=== PATIENT | male | born 1970 | race Caucasian/White ===

== ENCOUNTER → 2017-05-17 | Day surgery (SDC) | payer BC ==
[2017-05-12 12:27] LABS: BASOPHILS % 0.7 % (0.0-1.0); EOSINOPHILS % 0.2 % (0.0-6.0); HEMATOCRIT 46.8 % (38.2-49.6); HEMOGLOBIN 16.3 g/dL (14.0-18.0); LYMPHOCYTES % 21.9 % (18.0-39.1); MEAN CORPUSCULAR HEMOGLOBIN 34.8 pg (28-32); MEAN CORPUSCULAR HGB CONC 34.8 g/dL (31-35); MEAN CORPUSCULAR VOLUME 99.8 fL (81-99); MONOCYTES # (AUTO) 0.8 (0.2-0.8); MONOCYTES % 17.4 % (4.4-11.3); NEUTROPHILS # (AUTO) 2.6 (2.1-6.9); NEUTROPHILS % 58.9 % (38.7-80.0); PLATELET COUNT 231 x10e3/uL (140-360); RED BLOOD COUNT 4.69 x10e6/uL (4.3-5.7); RED CELL DISTRIBUTION WIDTH 12.2 % (11.7-14.4)
[~2017-05-17] MED LIST: AZELASTINE137 MCG/0.; FENTANYL CITRATE/PF 100MCG/2 ML INJ ONE; FLONASE; METOCLOPRAMIDE HCL 10 MG/2ML VIAL ONE; MIDAZOLAM HCL 2 MG/2 ML VIAL ONE; NEILMED SINUS1 EAC1; PANTOPRAZOLE 40 MG 10ML VIAL ONE; PATADAY2.5 ML OP; PROAIR HFA INH8.5 GM INH; PROPOFOL IV EMULSION 10 MG/ML 50 ML VIAL ONE; ZANTAC 7575 MG PO
[2017-05-17 15:50] LABS: WBC,FECAL (FECAL LACTOFERRIN) NEGATIVE (NEGATIVE)
--- NOTE | 2017-05-17 16:09 | Operative Report ---
DATE OF PROCEDURE: May 17, 2017 REFERRING PHYSICIAN: Dr. Kaushik Gomez. PROCEDURE PERFORMED: Esophagogastroduodenoscopy and colonoscopy with polypectomy. INDICATIONS FOR ESOPHAGOGASTRODUODENOSCOPY: Nausea and history of melena. INDICATIONS FOR COLONOSCOPY: Diarrhea and history of bright red blood per rectum. MEDICATION: Patient was done under MAC. Please see anesthesiologist's note. PROCEDURE: With patient in the left lateral decubitus position, flexible fiberoptic Olympus gastroscope was introduced into the esophagus under direct visualization without any difficulty. There was some patchy erythema noted in distal esophagus. The scope was then advanced with ease into the stomach. Mucosa overlying the antrum and the body revealed some diffuse erythema and moderate edema and biopsies were obtained and sent to stain for H. pylori. Scattered hyperplastic appearing polyps were noted in the body. Some were partially excised with cold biopsy forceps. Pylorus appeared to be of normal contour and shape. Was intubated with ease and the scope was advanced all the way to the 2nd portion of the duodenum. The scope was then withdrawn slowly. Mucosa overlying the proximal 2nd portion and the duodenal bulb appeared to be within normal limits. The scope was then withdrawn back into the stomach and retroflexed and the mucosa overlying the fundus and the cardia appeared to be within normal limits. The scope was then straightened out. The stomach was decompressed. The scope was subsequently withdrawn. Patient tolerated the procedure well. IMPRESSION: 1. Distal esophagitis. 2. Gastritis biopsied. Biopsy sent stain for H. pylori. 3. Gastric polyps, some partially excised with cold biopsy forceps. PLAN: Follow up histology. Initiate Protonix 40 mg 1 p.o. q.a.m., a.c. PROCEDURE: Patient was then turned around and after adequate lubrication of the anal canal a flexible fiberoptic Olympus colonoscope was inserted into the rectum with ease and advanced all the way to the cecum. It was then withdrawn slowly. Mucosa overlying the cecum, ascending and transverse appeared to be within normal limits. The left colon revealed some patchy mild to moderate inflammatory changes. Multiple random biopsies were obtained. Minimal diverticular disease was also noted. One polyp was hot biopsied from the sigmoid colon. The scope was then retroflexed into the distal rectum. Small internal hemorrhoids were noted, none of which was actively bleeding. The scope was then straightened out. The rectosigmoid area as well as the distal rectal area were decompressed. Scope was subsequently withdrawn after securing an adequate stool specimen that was sent for the appropriate stool studies. Patient tolerated the procedure well. IMPRESSION 1. Mild patchy colitis, left colon. 2. Diverticulosis, minimal. 3. Sigmoid colon polyp, hot biopsied. 4. Internal hemorrhoids none actively bleeding. PLAN: Follow up histology. Follow up stool studies. Initiate Bentyl 10 mg 1 p.o. t.i.d.. VSL#3 one p.o. b.i.d. Patient will need a followup colonoscopy in 3 years. Job#: [id number] cc:KAUSHIK GOMEZ MD
[2017-05-17 20:22] LABS: C DIFFICILE TOXIN A&B AMP PROB NEGATIVE (NEGATIVE)
== END | disposition home or self-care (01) ==
LOC: OR 10:40
PROVIDERS: ATTEND Internal Medicine Gastroenterology
DX: K29.70 Gastritis, unspecified, without bleeding (principal); K63.5 Polyp of colon; K31.7 Polyp of stomach and duodenum; K52.89 Other specified noninfective gastroenteritis and colitis; K20.9 Esophagitis, unspecified; K57.30 Diverticulosis of large intestine without perforation or abscess without bleeding; K64.8 Other hemorrhoids; K62.5 Hemorrhage of anus and rectum; R63.0 Anorexia; R03.0 Elevated blood-pressure reading, without diagnosis of hypertension; J45.909 Unspecified asthma, uncomplicated; I49.9 Cardiac arrhythmia, unspecified; Z01.812 Encounter for preprocedural laboratory examination; Z01.810 Encounter for preprocedural cardiovascular examination; Z87.891 Personal history of nicotine dependence
CPT/HCPCS: 36415; 43239; 45384; 83630; 83993; 85025; 87045; 87177; 87328; 87493; 93005; J2250; J2765; 45380

== ENCOUNTER → 2018-01-14 | Outpatient (CLI) | payer BC ==
[~2018-01-14] MED LIST changes: -FENTANYL CITRATE/PF 100MCG/2 ML INJ ONE; -METOCLOPRAMIDE HCL 10 MG/2ML VIAL ONE; -MIDAZOLAM HCL 2 MG/2 ML VIAL ONE; -PANTOPRAZOLE 40 MG 10ML VIAL ONE; -PROPOFOL IV EMULSION 10 MG/ML 50 ML VIAL ONE; +SINCALIDE 3 MCG/VIAL INJ ONE
--- NOTE | 2018-01-14 14:22 | Diagnostic Imaging Report ---
Hepatobiliary Scan with Gallbladder Ejection Fraction Clinical information: RUQ abdominal pain Report: Following intravenous administration of 6.6 millicuries of Tc-99m mebrofenin, dynamic images of the abdomen in the anterior projection were obtained through 32 minutes. Sincalide (CCK analog) 1.5 micrograms was administered intravenously over 30 minutes with additional imaging for determination of gallbladder ejection fraction. Perfusion to the liver is normal. Extraction of tracer from the blood pool by the liver parenchyma is normal. Tracer is seen promptly within the biliary tract. The gallbladder begins to fill by 8 minutes post-injection of tracer and fills adequately. Tracer is seen in the small bowel during the sincalide infusion. The gallbladder ejection fraction with administration of sincalide is 85% (normal greater than 40%). Impression: 1. Filling of the gallbladder excludes the diagnosis of acute cystic duct obstruction/acute cholecystitis. 2. Normal gallbladder ejection fraction of 85% does not support the clinical diagnosis of chronic cholecystitis/gallbladder dyskinesia. Signed by: Dr. Delores Covarrubias M.D. on 01/14/2018 2:18 PM
== END ==
LOC: NM 08:59
PROVIDERS: ATTEND Internal Medicine Gastroenterology
DX: R10.10 Upper abdominal pain, unspecified (principal)
CPT/HCPCS: 78227; A9537; J2805